=== PATIENT | female | born 2000 | race Caucasian/White ===

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

== ENCOUNTER 2019-03-14 04:55 | Emergency (ER) | payer BC ==
[~2019-03-14] VITALS: Ht 167.6 cm; Wt 54.5 kg
[~2019-03-14 04:55] MED LIST: KEPPRA1000 MG PO; LAMICTAL 25MG T25 MG PO
[2019-03-14] MEDS ORDERED: ZONEGRAN50 MG PO (05:04)
[2019-03-14 05:06] VITALS: TEMP 98.2
[2019-03-14 05:17] LABS: BASO % 0.2 % (0.0-2.0); EOS % 0.1 % (0-4.0); GRAN % 88.8 % (42.2-75.2); HEMATOCRIT 39.6 % (35.0-45.0); HEMOGLOBIN 13.2 g/dl (12.0-15.0); LYMPH # 0.7 (1.2-3.4); LYMPH % 3.6 % (20.0-51.0); MEAN CELL VOLUME 95 fl (80.0-95.0); MEAN CORPUSCULAR HEMOGLOBIN 32 pg (26.0-32.0); MEAN CORPUSCULAR HGB CONC 33 g/dl (33.0-37.0); MEAN PLATELET VOLUME 9.7 fl (7.4-10.4); MONO # 1.2 (0.1-0.6); MONO % 6.6 % (1.7-9.3); PLATELET COUNT 246 K/mm3 (130-400); RED BLOOD COUNT 4.17 M/mm3 (4.10-5.30); REDCELL DISTRIBUTION WIDTH-CV 12.3 % (11.5-14.5)
[2019-03-14 05:29] LABS: ALANINE AMINOTRANSFERASE 15 U/L (9-52); ALBUMIN 4.3 gm/dL (3.5-5.0); ALKALINE PHOSPHATASE 64 U/L (50-136); ANION GAP 11 mmol/L (7-16); AST,SGOT 25 U/L (15-37); BILIRUBIN,TOTAL 0.3 mg/dL (0.0-1.0); BLOOD UREA NITROGEN 9 mg/dL (7-17); CALCIUM 8.6 mg/dL (8.4-10.2); CARBON DIOXIDE 21 mmol/L (22-30); CHLORIDE 112 mmol/L (98-107); CREATININE, serum 0.95 (0.52-1.25); GLUCOSE 84 mg/dL (74-106); POTASSIUM 4.2 mmol/L (3.4-5.0); SODIUM 144 mmol/L (137-145); TOTAL PROTEIN 6.8 gm/dL (6.4-8.2)
[2019-03-14 05:30] LABS: ALCOHOL(ethanol),MEDICAL < 10 mg/dL
[2019-03-14 05:45] LABS: PROLACTIN 14.1 ng/mL (3.0-18.6)
[2019-03-14 07:15] VITALS: BP 123/76; PULSE 84
== END 2019-03-14 07:20 | disposition home or self-care (01) ==
LOC: COL.ER 04:55
PROVIDERS: Emergency Medicine
DX: G40.909 Epilepsy, unspecified, not intractable, without status epilepticus (principal)
CPT/HCPCS: J2060